=== PATIENT | female | born 1980 | race Two or more races ===

== ENCOUNTER 2018-11-04 17:52 | Inpatient (IN) | payer MEDICAID ==
[~2018-11-04] VITALS: Ht 165.1 cm; Wt 90.7 kg
[2018-11-04] MEDS ORDERED: DEXT 5%/LR + PITOCIN 20UNITS/L 1,000 ML IV SCH (19:41)
[2018-11-04] MEDS ORDERED: BUTORPHANOL TARTRATE 2 MG/ML VIAL IV PRN (19:45)
[2018-11-04] MEDS ORDERED: METHYLERGONOVINE MALEATE 0.2 MG/ML IM PRN (19:45)
[2018-11-04] MEDS ORDERED: NALOXONE HCL 0.4 MG/ML 1ML VIAL IM PRN (19:45)
[2018-11-04] MEDS: LACTATED RINGERS 1,000 ML IV SCH (19:45)
[2018-11-04] MEDS ORDERED: LIDOCAINE HCL 1% 20ML VIAL (Pyxis) INJ INFIL SCH (19:45)
[2018-11-04 20:19] LABS: CLARITY URINE CLEAR (CLEAR); COLOR URINE YELLOW (YELLOW); KETONES URINE NEGATIVE (NEGATIVE); LEUKOCYTE ESTERASE URINE 2+ (NEGATIVE); NITRITE URINE NEGATIVE (NEGATIVE); OCCULT BLOOD URINE TRACE (NEGATIVE); PROTEIN URINE NEGATIVE (NEGATIVE); SPECIFIC GRAVITY URINE 1.009 (1.005-1.030); UROBILINOGEN URINE 0.2 E.U./dL (0.2-1.0)
[2018-11-04 20:21] LABS: BASOPHILS % 0.2 % (0.0-2.0); EOSINOPHILS % 0.6 % (0.0-5.0); HEMATOCRIT. 36.7 % (36.0-48.0); HEMOGLOBIN. 12.4 g/dL (12.0-16.0); LYMPHOCYTES % 29.6 % (20.0-50.0); MEAN CORPUSCULAR HEMOGLOBIN 29.9 pg (28.0-32.0); MEAN CORPUSCULAR VOLUME 88.4 fL (81.0-99.0); MEAN PLATELET VOLUME 9.5 fl (7.4-10.4); MONOCYTES % 5.3 % (2.0-8.0); NEUTROPHILS % 64.3 % (40.0-76.0); PLATELET 230 x1000/uL (130-400); RED BLOOD CELL COUNT 4.15 mill/uL (4.2-5.4); RED CELL DISTRIBUTION WIDTH 14.6 % (11.6-14.6)
[2018-11-04 20:26] LABS: PARTIAL THROMBOPLASTIN TIME 29.8 sec (23.4-31.0); PROTHROMBIN TIME 9.9 sec (9.6-11.0)
[2018-11-04 20:27] LABS: *AMPHETAMINES SCREEN URINE NEGATIVE (NEGATIVE); *BARBITURATES SCREEN URINE NEGATIVE (NEGATIVE); *BENZODIAZEPINES SCREEN URINE NEGATIVE (NEGATIVE); *COCAINE SCREEN URINE NEGATIVE (NEGATIVE)
[2018-11-04 20:28] LABS: CANNABINOID URINE SCREEN NEGATIVE (NEGATIVE); METHADONE URINE SCREEN NEGATIVE (NEGATIVE); OPIATES URINE SCREEN NEGATIVE (NEGATIVE); PHENCYCLIDINE URINE SCREEN NEGATIVE (NEGATIVE)
[2018-11-04] MEDS ORDERED: PENICILLIN G POTASSIUM 5 MMU in DEXT 5% WATER 100 ML IV SCH (21:00)
[2018-11-04] MEDS: MISOPROSTOL 100MCG TABLET VG SCH (21:27)
[2018-11-05] MEDS: MISOPROSTOL 100MCG TABLET VG SCH (01:41)
[2018-11-05] MEDS: PENICILLIN G POTASSIUM 2.5 MMU in DEXTROSE 5% WATER 50 ML IV SCH ×2 (02:00→05:30)
[2018-11-05] MEDS: LACTATED RINGERS 1,000 ML IV SCH (03:16)
[2018-11-05] MEDS ORDERED: ROPIVACAINE HCL/PF EPIDURAL 200 ML EP SCH (06:15)
[2018-11-05] MEDS ORDERED: MORPHINE SULFATE/PF 1MG/ML 10ML AMP ONE (06:42)
[2018-11-05] MEDS ORDERED: FENTANYL CITRATE/PF 50MCG/ML 2ML VIAL ONE (06:42)
[2018-11-05] MEDS ORDERED: CEFAZOLIN SODIUM 1000MG/VIAL ONE (06:43)
[2018-11-05] MEDS ORDERED: BUPIVACAINE HCL/DEXTROSE/PF 0.75% 2ML AMP INJ ONE (06:43)
[2018-11-05] MEDS ORDERED: GLYCOPYRROLATE 0.2 MG/ML 2ML VIAL ONE (06:43)
[2018-11-05] MEDS ORDERED: EPHEDRINE SULFATE 50MG/ML VIAL ONE (06:43)
[2018-11-05] MEDS ORDERED: OXYTOCIN 10 UNITS/ML 1ML ONE (06:43)
[2018-11-05] MEDS ORDERED: CITRIC ACID/SODIUM CITRATE SOLN 30ML UDC PO NR (07:00)
[2018-11-05] MEDS ORDERED: ONDANSETRON HCL 4MG/2ML INJ ONE (07:09)
[2018-11-05] MEDS ORDERED: KETOROLAC 60MG/2ML VIAL IM ONE (07:21)
[2018-11-05] MEDS ORDERED: DIPHENHYDRAMINE 50MG/ML VIAL ONE (07:21)
[2018-11-05] MEDS ORDERED: ONDANSETRON HCL 4MG/2ML INJ IV PRN (08:00)
[2018-11-05] MEDS ORDERED: DIPHENHYDRAMINE 25MG CAPSULE PO PRN (08:00)
[2018-11-05] MEDS ORDERED: TETANUS, DIPHTHERIA, PERTUSSIS VAC/PF 0.5ML (>7YR OLD) IM ONE (08:00)
[2018-11-05] MEDS ORDERED: BISACODYL 10MG SUPP PR PRN (08:00)
[2018-11-05] MEDS ORDERED: IBUPROFEN 400MG TABLET PO PRN (08:00)
[2018-11-05] MEDS ORDERED: HYDROCODONE/ACETAMINOPHEN 5/325MG TABLET PO PRN (08:00)
[2018-11-05] MEDS ORDERED: LANOLIN OINT 7GM TUBE TOP PRN (08:00)
[2018-11-05] MEDS: DEXT 5%/LR + PITOCIN 20UNITS/L 1,000 ML IV SCH ×3 (08:05→19:21)
[2018-11-05] MEDS ORDERED: NALOXONE HCL 0.4 MG/ML 1ML VIAL IV PRN (08:15)
[2018-11-05] MEDS ORDERED: DIPHENHYDRAMINE 50MG/ML VIAL IV PRN (08:15)
[2018-11-05] MEDS ORDERED: BUTORPHANOL TARTRATE 2 MG/ML VIAL IV PRN (08:15)
[2018-11-05] MEDS ORDERED: KETOROLAC 30MG/ML VIAL IV PRN (08:15)
[2018-11-05] MEDS ORDERED: INFLUENZA VIRUS VACCINE(AFLURIA) 0.5ML SYR IM ONE (10:00)
[2018-11-05 11:20] VITALS: BP 138/69
[2018-11-05 12:20] VITALS: BP 114/71
[2018-11-05 12:30] LABS: HEPATITIS B SURFACE ANTIGEN NEGATIVE
[2018-11-05 13:20] VITALS: BP 108/67
[2018-11-05 14:20] VITALS: BP 113/66
[2018-11-05 16:20] VITALS: BP 110/60
[2018-11-05] MEDS: DOCUSATE SODIUM 100MG CAPSULE PO SCH (21:00)
[2018-11-05] MEDS: SIMETHICONE 80MG TABLET CHEW PO SCH (21:00)
[2018-11-05 22:00] VITALS: BP 118/69
[2018-11-06] MEDS: DEXT 5%/LR + PITOCIN 20UNITS/L 1,000 ML IV SCH (02:04)
[2018-11-06 05:40] VITALS: BP 114/68
[2018-11-06 06:39] LABS: BASOPHILS % 0.2 % (0.0-2.0); EOSINOPHILS % 0.5 % (0.0-5.0); HEMATOCRIT. 29.9 % (36.0-48.0); HEMOGLOBIN. 9.9 g/dL (12.0-16.0); LYMPHOCYTES % 20.7 % (20.0-50.0); MEAN CORPUSCULAR HEMOGLOBIN 29.7 pg (28.0-32.0); MEAN CORPUSCULAR VOLUME 89.5 fL (81.0-99.0); MEAN PLATELET VOLUME 9.1 fl (7.4-10.4); MONOCYTES % 5.5 % (2.0-8.0); NEUTROPHILS % 73.1 % (40.0-76.0); PLATELET 172 x1000/uL (130-400); RED BLOOD CELL COUNT 3.34 mill/uL (4.2-5.4); RED CELL DISTRIBUTION WIDTH 14.5 % (11.6-14.6)
[2018-11-06 07:36] VITALS: BP 108/56
[2018-11-06] MEDS: SIMETHICONE 80MG TABLET CHEW PO SCH ×4 (08:28→21:36)
[2018-11-06] MEDS: PRENATAL VIT/FE FUMARATE/FA TABLET PO SCH (08:28)
[2018-11-06] MEDS: FERROUS SULFATE 325MG TABLET PO SCH ×3 (08:28→17:33)
[2018-11-06 16:06] VITALS: BP 125/57
[2018-11-06] MEDS: IBUPROFEN 800MG TABLET PO PRN (16:18)
[2018-11-06 19:45] VITALS: BP 112/54
[2018-11-06] MEDS: DOCUSATE SODIUM 100MG CAPSULE PO SCH (21:36)
[2018-11-07 00:16] VITALS: BP 111/63
[2018-11-07] MEDS: IBUPROFEN 800MG TABLET PO PRN ×3 (00:18→14:38)
[2018-11-07 04:00] VITALS: BP 109/56
[2018-11-07 08:30] VITALS: BP 125/44
[2018-11-07] MEDS: FERROUS SULFATE 325MG TABLET PO SCH ×2 (08:30→14:38)
[2018-11-07] MEDS: PRENATAL VIT/FE FUMARATE/FA TABLET PO SCH (08:30)
[2018-11-07] MEDS: SIMETHICONE 80MG TABLET CHEW PO SCH ×2 (08:31→21:00)
[2018-11-07 16:39] VITALS: BP 123/67
[2018-11-07 20:00] VITALS: BP 131/66
[2018-11-07] MEDS: DOCUSATE SODIUM 100MG CAPSULE PO SCH (21:06)
[2018-11-08] VITALS: BP 119/84
[2018-11-08 04:00] VITALS: BP 122/52
[2018-11-08] MEDS: IBUPROFEN 800MG TABLET PO PRN (06:26)
[2018-11-08 08:00] VITALS: BP 123/65
== END 2018-11-08 12:30 | disposition home or self-care (01) | DRG 540 ==
LOC: 8 EST LDRP 17:52 → OBSVTOIN 17:52 → 8 EST LDRP 11-05 07:32 → 8EST 11-05 12:50
PROVIDERS: ADMIT Obstetrics & Gynecology; ATTEND Obstetrics & Gynecology
PROC: 10D00Z1 Extraction of Products of Conception, Low, Open Approach (ICD-10-PCS; principal; 2018-11-05)
DX: O41.03X0 Oligohydramnios, third trimester, not applicable or unspecified (principal); D64.9 Anemia, unspecified; O75.89 Other specified complications of labor and delivery; O99.03 Anemia complicating the puerperium; R77.2 Abnormality of alphafetoprotein; Q90.9 Down syndrome, unspecified; Z3A.37 37 weeks gestation of pregnancy; Z37.0 Single live birth; O76 Abnormality in fetal heart rate and rhythm complicating labor and delivery
CPT/HCPCS: 36415; 80305; 86592; 86703; 86762; 86850; 86900; 87340; 88307; 90686; 90715; 99281; G0378; J0690; J1200; J1885; J2274; J2405; J2540; J2590; J2795; J3010; J3490; J7060; A4315

== ENCOUNTER 2019-05-25 16:32 | Inpatient (IN) | payer MEDICAID ==
[~2019-05-25] VITALS: Ht 167.6 cm; Wt 69.9 kg
[2019-05-25] MEDS ORDERED: SODIUM CHLORIDE 0.9% 1,000 ML IV ONE (18:17)
[2019-05-25] MEDS ORDERED: ONDANSETRON HCL 4MG/2ML INJ IV ONE (18:30)
[2019-05-25] MEDS ORDERED: MORPHINE SULFATE 4 MG/ML CPJ (NOT FOR IM USE) IV ONE (18:30)
[2019-05-25 18:58] LABS: BASOPHILS % 0.7 % (0.0-2.0); EOSINOPHILS % 0.6 % (0.0-5.0); HEMATOCRIT. 36.8 % (36.0-48.0); HEMOGLOBIN. 12.3 g/dL (12.0-16.0); LYMPHOCYTES % 37.7 % (20.0-50.0); MEAN CORPUSCULAR HEMOGLOBIN 29.7 pg (28.0-32.0); MEAN CORPUSCULAR VOLUME 88.9 fL (81.0-99.0); MEAN PLATELET VOLUME 9.2 fl (7.4-10.4); PLATELET 343 x1000/uL (130-400); RED BLOOD CELL COUNT 4.14 mill/uL (4.2-5.4); RED CELL DISTRIBUTION WIDTH 13.5 % (11.6-14.6)
[2019-05-25 19:04] LABS: CHLORIDE 106 mEq/L (98-107)
[2019-05-25 19:26] LABS: B-HCG QUANTITATIVE 1150 mIU/mL (<3)
[2019-05-25] MEDS ORDERED: FENTANYL CITRATE/PF 50MCG/ML 2ML VIAL ONE (20:47)
[2019-05-25] MEDS ORDERED: PROPOFOL 200MG/20ML VIAL IV ONE (20:47)
[2019-05-25] MEDS ORDERED: MIDAZOLAM HCL 2 MG/2 ML VIAL ONE (20:47)
[2019-05-25] MEDS ORDERED: OXYTOCIN 10 UNITS/ML 1ML ONE (20:48)
[2019-05-25] MEDS ORDERED: CEFAZOLIN SODIUM 1000MG/VIAL ONE (21:02)
[2019-05-25] MEDS ORDERED: ONDANSETRON HCL 4MG/2ML INJ ONE (21:02)
[2019-05-25] MEDS ORDERED: METOCLOPRAMIDE HCL 10MG/2ML VIAL ONE (21:02)
[2019-05-25] MEDS ORDERED: LIDOCAINE HCL/PF 1% 10 MG/ML 5ML VIAL ONE (21:02)
[2019-05-25] MEDS ORDERED: IBUPROFEN 800MG TABLET PO PRN (22:30)
[2019-05-25 22:50] VITALS: BP 104/66
[2019-05-26 07:28] LABS: HEMATOCRIT 31.9 % (36.0-48.0); MEAN CORPUSCULAR HEMOGLOBIN 30.5 pg (28.0-32.0); MEAN CORPUSCULAR VOLUME 88.5 fL (81.0-99.0); PLATELET 170 x1000/uL (130-400); RED CELL DISTRIBUTION WIDTH 13.6 % (11.6-14.6)
[2019-05-26 08:00] VITALS: BP 102/53
[2019-05-26 09:56] VITALS: BP 102/53
== END 2019-05-26 13:00 | disposition home or self-care (01) | DRG 544 ==
LOC: ER 16:32 → 6EST 20:01 → SUPCPDRO 20:15 → ENRESERV 21:29
PROVIDERS: ADMIT Obstetrics & Gynecology; ATTEND Obstetrics & Gynecology
PROC: 10D17ZZ Extraction of Products of Conception, Retained, Via Natural or Artificial Opening (ICD-10-PCS; principal; 2019-05-25)
PROC: 30233N1 Transfusion of Nonautologous Red Blood Cells into Peripheral Vein, Percutaneous Approach (ICD-10-PCS; 2019-05-25)
DX: O03.4 Incomplete spontaneous abortion without complication (principal)
CPT/HCPCS: 36415; 76801; 84484; 84702; 85027; 86850; 86900; 86920; 88305; 99291; J0690; J2250; J2405; J2704; J2765; J3010; J3490; J7030; P9016

== ENCOUNTER 2022-12-29 15:41 | Emergency (ER) | payer MEDICAID ==
[~2022-12-29] VITALS: Ht 165.1 cm; Wt 91.0 kg
[2022-12-29 15:48] VITALS: BP 109/69; RESP 18; TEMP 98; O2SAT 100
[2022-12-29 15:54] VITALS: PULSE 101
== END 2022-12-29 18:43 | disposition left against medical advice (07) ==
LOC: ER 15:41
DX: Z53.21 Procedure and treatment not carried out due to patient leaving prior to being seen by health care provider (principal)
CPT/HCPCS: 99281